=== PATIENT | female | born 1990 | race Caucasian/White ===

== ENCOUNTER 2021-09-06 19:35 | Emergency (ER) | payer BC, SELFPAY ==
[2021-09-06 19:46] VITALS: BP 115/84; PULSE 99; RESP 16; TEMP 36.2; O2SAT 99
--- NOTE | 2021-09-06 20:17 | ED.GENADULT ---
HPI - General Adult General Chief complaint: Neck Pain/Injury Stated complaint: neck pain Source: patient Mode of arrival: ambulatory Limitations: no limitations History of Present Illness HPI narrative: Patient is a 31-year-old female who presents to the [facility] via POV for evaluation of right sided neck pain that has been present for 1 week. Patient reports she woke up with neck pain. She believes she slept on her neck wrong. She reports her neck pain radiates to right shoulder and forehead. Initially, her pain started on the left although that pain resolved. She reports her pain is intermittent sharp and shooting. Current pain level is 7-8 out of 10. Ibuprofen and Tylenol provide short-term relief. Bending over increases pain. She is also requesting documentation for work absence. Related Data Home Medications Medication Instructions Recorded Confirmed albuterol 1 mcg INHALATION PRN PRN 09/06/21 09/06/21 levonorgestrel [Mirena] 1 insert INTRAUTERINE ONCE 09/06/21 09/06/21 Allergies Allergy/AdvReac Type Severity Reaction Status Date / Time morphine Allergy Blister Verified 09/06/21 19:50 PMFSH Comments I have reviewed and agree with the patient's past medical, surgical, social, and family hx as documented by the RN. There is no relevant family history pertinent to the presenting complaint. Exam Narrative: GENERAL: Well-appearing, well-nourished, and in no acute distress. HEAD: Normocephalic, atraumatic. NECK: Supple. No Lymphadenopathy or nuchal rigidity appreciated. CHEST: Bilateral lung guerrero are clear to auscultation. No respiratory distress. No evidence of cough or pleuritic cp upon examination. HEART: Regular rate and rhythm. No murmur, gallop, or rub heard. EXTREMITIES: Moderate pain elicited to right lateral neck with palpation. Moderate pain also elicited with right rotation and lateral flexion. No evidence of injury, decreased ROM, swelling, cyanosis, hematoma, laceration, abrasion, deformity, rash, or puncture. No evidence of dislocation, ligament laxity, effusion, or pain at rest. Pulses palpable at 2+, strength 5/5, and cap refill < 3 seconds in affected extremity. DTRs normal. Gait normal. SKIN: Warm, dry, no rash. NEURO: No focal deficits. Alert and oriented x3. Course Vital Signs Vital signs: Vital Signs Temperature 97.2 F L 10/09/21 19:46 Pulse Rate 99 09/06/21 19:46 Respiratory Rate 16 09/06/21 19:46 Blood Pressure 115/84 09/06/21 19:46 Pulse Oximetry 99 09/06/21 19:46 Temperature 97.2 F L 09/06/21 19:46 Pulse Rate 99 09/06/21 19:46 Respiratory Rate 16 09/06/21 19:46 Blood Pressure 115/84 09/06/21 19:46 Pulse Oximetry 99 09/06/21 19:46 Reviewed Medical Decision Making Differential Diagnosis Differential Diagnosis: Neck strain, cervical radiculopathy, whiplash spondylosis, Medical Records Medical records reviewed: Yes I reviewed the external patient's medical records. Vital Signs Vital Signs: Vital Signs Temperature 97.2 F L 09/06/21 19:46 Pulse Rate 99 09/06/21 19:46 Respiratory Rate 16 09/06/21 19:46 Blood Pressure 115/84 09/06/21 19:46 Pulse Oximetry 99 09/06/21 19:46 Temperature 97.2 F L 09/06/21 19:46 Pulse Rate 99 09/06/21 19:46 Respiratory Rate 16 09/06/21 19:46 Blood Pressure 115/84 09/06/21 19:46 Pulse Oximetry 99 09/06/21 19:46 Reviewed Critical Care Time Critical Care Time Critical Care Time: No Discharge Plan Discharge Clinical Impression: Strain of neck muscle Patient Disposition: Home, Self-Care Condition: Stable Instructions: Acute Neck Pain (ED) Additional Instructions: See discharge instructions for detailed information. Take all prescription medication only as prescribed. No yaah-[id number] anti-inflammatory such as Aleve, ibuprofen, Advil while taking prednisone. Tylenol for additional pain relief. Take only as directed per packaging label. Be sure
== END 2021-09-06 20:20 | disposition home or self-care (01) ==
PROVIDERS: Emergency Provider Nurse Practitioner Family
DX: S16.1XXA Strain of muscle, fascia and tendon at neck level, initial encounter (principal); X58.XXXA Exposure to other specified factors, initial encounter; J45.909 Unspecified asthma, uncomplicated
CPT/HCPCS: 99203; G0463

== ENCOUNTER 2022-03-25 07:34 | Emergency (ER) | payer SELFPAY ==
[2022-03-25] VITALS (9 sets, daily range): BP systolic 111–137; BP diastolic 85–86; PULSE 92–114; RESP 16–29; TEMP 36.8; O2SAT 94–100
--- NOTE | ~2022-03-25 | XR_ITS ---
XR chest 1V portable DATE: 03/25/2022 08:25 INDICATION: Cough, shortness of breath. Asthma. TECHNIQUE: Portable upright AP chest on 03/25/2022 at 0819 hours COMPARISON: None FINDINGS: Normal heart size. No hilar or mediastinal enlargement. No pulmonary infiltrate or consolid ation, pleural effusion or pulmonary vascular congestion or pneumothorax. Included skeletal structure s are unremarkable. There appear to be some surgical clips overlying the medial aspect of the right upper quadrant. IMPRESSION: No active cardiopulmonary disease Reviewed, dictated and finalized at location A.
--- NOTE | 2022-03-25 07:47 | ED.SOB ---
HPI - SOB/Dyspnea General Chief Complaint: Shortness of Breath/Dyspnea Stated Complaint: SOB Time Seen by Provider: 03/25/22 07:43 Source: patient Mode of arrival: ambulatory Limitations: no limitations History of Present Illness HPI Narrative: Patient is a 31-year-old female complaining of asthma attack started 2 weeks ago but worse today. Patient describes her asthma attack as shortness of breath accompanied by coughing, productive, clear yellowish sputum. Patient also complaining of nasal congestion for the past few days. Patient denies any chest pain, abdominal pain, diaphoresis, fever or chills. Related Data Home Medications Medication Instructions Recorded Confirmed albuterol 1 mcg INHALATION PRN PRN 09/06/21 09/06/21 levonorgestrel [Mirena] 1 insert INTRAUTERINE ONCE 09/06/21 09/06/21 Allergies Allergy/AdvReac Type Severity Reaction Status Date / Time morphine Allergy Blister Verified 09/06/21 19:50 Review of Systems Review of Systems: All systems reviewed & are unremarkable except as noted in HPI and below Constitutional: Constitutional: Denies body ache(s), Denies chills, Denies excessive sweating, Denies fatigue, Denies fever(s), Denies headache(s), Denies lethargy, Denies malaise, Denies weakness and Denies weight loss Eyes: Eyes: Denies blurry vision, Denies change in vision and Denies loss of vision ENT: Denies dizziness, Denies ear discharge, Denies headache(s), Denies lip swelling, Denies epistaxis, Denies neck pain, Denies throat swelling and Denies tongue swelling Cardiovascular: Cardiovascular: Denies chest pain, Denies chest pain at rest, Denies chest pain with activity, Denies diaphoresis, Denies rapid heart rate, Denies edema, Denies irregular heart rhythm, Denies lightheadedness and Denies palpitations Respiratory: Respiratory: Denies chest congestion and Denies hemoptysis Gastrointestinal: Gastrointestinal: Denies abdominal pain, Denies melena, Denies hematochezia, Denies diarrhea, Denies nausea, Denies vomiting and Denies hematemesis Musculoskeletal: Musculoskeletal: Denies abnormal gait, Denies deformity, Denies joint swelling, Denies limited range of motion, Denies neck pain and Denies numbness Neurologic: Denies Abnormal speech present, Denies abnormal gait, Denies confusion, Denies dizziness, Denies headache(s), Denies focal weakness, Denies loss of vision, Denies numbness, Denies Other visual disturbances, Denies Sensory deficit (Neuro) and Denies weakness Psychiatric: Psychiatric: Denies confusion, Denies depression, Denies auditory hallucinations, Denies homicidal ideation and Denies suicidal ideation Endocrine: Endocrine: Denies cold intolerance, Denies excessive sweating, Denies fatigue, Denies heat intolerance and Denies palpitations Hematologic/Lymphatic: Hematologic/Lymphatic: Denies easy bleeding and Denies easy bruising Allergic/Immunologic: Allergic/Immunologic: Denies lip swelling, Denies throat swelling and Denies tongue swelling PMFSH Comments Past medical history: Asthma Family history: Unknown Social history: Positive for smoker, occasional EtOH use, no drug use Exam Const: General: cooperative, comfortable, well developed, alert and awake; No confusion Orientation/consciousness: oriented to person, oriented to place, oriented to time, patient oriented x3 and No confusion Limitations: no limitations Other: Moderate distress HENMT: Head: normal to inspection, normocephalic and atraumatic Ears: hearing grossly normal bilaterally, TM normal on the right and TM normal on the left General nose exam: Normal external nose present, Normal nares present and No nasal discharge present Face and sinus: normal facial exam Mouth: Yes Normal oral and palatal mucosa present, Yes lip normal, Yes tongue normal and Yes oropharynx normal Throat: posterior oropharynx normal, tonsils normal and uvula midline Eyes: General: appearance normal, both eyes and all related structures Pupils: Eq
[2022-03-25] MEDS: ALBUTEROL SULFATE NEB 2.5 MG/3 ML INH 1.25 MG INHALATION (07:51)
[2022-03-25] MEDS: methylPREDNISolone SOD SUCC 125 MG VIAL IV PUSH (08:11)
--- NOTE | 2022-03-25 09:39 | ECG_ITS ---
Measurements Intervals [place] Rate: 98 P: 72 UT: 144 QRS: 62 QRSD: 90 T: 42 QT: 379 QTc: 485 Interpretive Statements SINUS RHYTHM POSSIBLE LEFT ATRIAL ENLARGEMENT [-0.1mV P WAVE IN V1/V2] NO PREVIOUS ECG AVAILABLE FOR COMPARISON Electronically Signed On 03-25-2022 13:49:05 CDT by Mally Schwartz M.D.
[2022-03-25] MEDS: ALBUTEROL SULFATE NEB 2.5 MG/0.5 ML INH INHALATION (09:49)
[2022-03-25] MEDS: IPRATROPIUM BR 0.02% INH SOLN 0.5 MG/2.5 ML VIAL INHALATION (09:49)
[2022-03-25 10:03] LABS: Basophils Absolute Auto 0.1 K/mm3 (0.0-0.1); Basophils Percent Auto 0.8 % (0.2-1.2); Eosinophils Absolute Auto 0.4 K/mm3 (0-0.3); Eosinophils Percent Auto 3.3 % (0-4.4); Hematocrit 45.8 % (37.0-47.0); Hemoglobin 14.8 g/dL (12.0-15.0); Immature Granulocyte Absolute 0.03 K/mm3 (0.00-0.031); Immature Granulocyte Percent A 0.3 % (0-0.5); Lymphocytes Absolute Auto 1.17 K/mm3 (0.9-3.2); Lymphocytes Percent Auto 9.9 % (18.3-44.2); Mean Corpuscular HGB Conc 32.3 g/dl (32-36); Mean Corpuscular Volume 92.9 fl (80-100); Mean Platelet Volume 9.1 fl (7.4-10.4); Monocytes Absolute Auto 0.3 K/mm3 (0.1-0.6); Monocytes Percent Auto 2.7 % (2.6-8.5); Neutrophils Absolute Auto 9.8 K/mm3 (1.3-6.7); Platelet Count Result 328 k/mm3 (150-375); Red Blood Count 4.93 M/mm3 (4.2-5.4); Red Cell Distribution Width 12.3 % (11.5-14.5); White Blood Count 11.8 K/mm3 (4.5-10.0)
[2022-03-25 10:18] LABS: Anion Gap 7 mmol/L (8-16); Blood Urea Nitrogen 17 mg/dL (7-17); Calcium 8.9 mg/dL (8.4-10.2); Carbon Dioxide 25 mmol/L (22-30); Chloride 107 mmol/L (98-107); Estimated CRCL calculation 94 ml/min; Estimated Glomerular Filt Rate > 60; Glucose 119 mg/dL (65-110); Potassium 3.8 mmol/L (3.4-5.0); Sodium 139 mmol/L (137-145)
[2022-03-25 10:30] LABS: NT Pro B Type Natriuretic Pept 26 pg/mL (5-100); Troponin I < 0.012 ng/mL (0.000-0.034)
== END 2022-03-25 11:12 | disposition home or self-care (01) ==
PROVIDERS: Emergency Provider Emergency Medicine
DX: J45.901 Unspecified asthma with (acute) exacerbation (principal)
CPT/HCPCS: 36415; 71045; 80048; 81025; 83880; 84484; 85025; 93005; 94640; 96374; 99284; J2930

== ENCOUNTER 2022-11-14 05:20 | Emergency (ER) | payer MEDICAID, SELFPAY ==
[2022-11-14 05:25] VITALS: BP 120/79; PULSE 91; RESP 18; TEMP 36.7; O2SAT 100
--- NOTE | 2022-11-14 07:49 | ED.GENADULT ---
HPI - General Adult General Chief complaint: Dental/Oral Stated complaint: facial swelling Time Seen by Provider: 11/14/22 07:14 History of Present Illness HPI narrative: 32-year-old female presents to our department with left-sided facial pain and dental caries. Patient states that she went to bed and felt a tooth ache and a left upper molar. She awoke at 4 AM and noticed that her face was quite swollen. She took ibuprofen and Tylenol at 11 PM she has a dental appointment scheduled this week. Related Data Home Medications Medication Instructions Recorded Confirmed albuterol 90 mcg/actuation aerosol 1 mcg inhalation PRN PRN Shortness 09/06/21 09/06/21 inhaler Of Breath levonorgestrel 20 mcg/24 hours (8 1 insert intrauterine ONCE 09/06/21 09/06/21 yrs) 52 mg intrauterine device (Mirena) Allergies Allergy/AdvReac Type Severity Reaction Status Date / Time morphine Allergy Blister Verified 11/14/22 08:05 Review of Systems Review of Systems: CONSTITUTIONAL: Denies fever, chills, or sweats. EYES: Denies visual changes, redness, or discharge. ENT: Denies rhinorrhea, congestion, sore throat, or otalgia. CARDIOVASCULAR: Denies chest pain, palpitations, or edema. RESPIRATORY: Denies cough or dyspnea. GASTROINTESTINAL: Denies abdominal pain, nausea, vomiting, or diarrhea. GENITOURINARY: Denies dysuria or hematuria. SKIN: Denies rash or itching. MUSCULOSKELETAL: Denies back pain, joint pain, or myalgia. NEUROLOGIC: Denies headache, numbness, or weakness. PSYCHIATRIC: Denies anxiety or depression. Exam Narrative: GENERAL: Well-appearing, well-nourished, and in no acute distress. HEAD: Normocephalic, atraumatic. Left-sided facial swelling EYES: PERRLA and EOMI. ENT: Nares clear, no rhinorrhea or epistaxis. Mucous membranes moist. Poor dentition with multiple dental caries. There is a cracked and decayed molar in the left upper jaw with no surrounding fluctuance or drainage. This is approximately tooth #14 but there are multiple prior extractions making numbering difficult. NECK: Supple. CHEST: Clear to auscultation. No respiratory distress. HEART: Regular rate and rhythm. No murmur heard. Normal peripheral pulses. ABDOMEN: Soft, nontender, nondistended, normal active bowel sounds. EXTREMITIES: Normal range of motion. No edema. SKIN: Warm, dry, no rash. NEURO: No focal deficits. Alert and oriented x3. PSYCH: Normal mood and affect. Course Vital Signs Vital signs: Vital Signs Temperature 98.1 F 11/14/22 05:25 Pulse Rate 91 11/14/22 05:25 Respiratory Rate 18 11/14/22 05:25 Blood Pressure 120/79 11/14/22 05:25 Pulse Oximetry 100 11/14/22 05:25 Oxygen Delivery Room Air 11/14/22 05:25 Temperature 98.1 F 11/14/22 05:25 Pulse Rate 67 11/14/22 07:57 Respiratory Rate 15 11/14/22 07:57 Blood Pressure 133/86 11/14/22 07:57 Pulse Oximetry 97 11/14/22 07:57 Oxygen Delivery Room Air 11/14/22 05:25 Medical Decision Making MDM Narrative Medical decision making narrative: Will give pain medication and antibiotic. Upon my initial interview patient is quite agitated and seems frustrated. I have attempted to reassure patient but I am unsure if she was receptive. Patient has received antibiotics and pain medication. I have explained importance of treatment and further steps to manage her condition. Family at bedside is very courteous and receptive but patient seems to be intentionally ignoring me when I talk to her. Vital Signs Vital Signs: Vital Signs Temperature 98.1 F 11/14/22 05:25 Pulse Rate 91 11/14/22 05:25 Respiratory Rate 18 11/14/22 05:25 Blood Pressure 120/79 11/14/22 05:25 Pulse Oximetry 100 11/14/22 05:25 Oxygen Delivery Room Air 11/14/22 05:25 Temperature 98.1 F 11/14/22 05:25 Pulse Rate 67 11/14/22 07:57 Respiratory Rate 15 11/14/22 07:57 Blood Pressure 133/86 11/14/22 07:57 Pulse Oximetry 97 11/14/22 07:57 Oxygen
[2022-11-14 07:57] VITALS: BP 133/86; PULSE 67; RESP 15; O2SAT 97
[2022-11-14] MEDS: HYDROcodone/acetaminophen (*CRX) 5-325 MG TABLET 1 TAB PO (08:05)
[2022-11-14] MEDS: AMOXICILLIN/CLAVULANATE K 875-125 MG TAB 1 TABLET PO (08:05)
[2022-11-14] MEDS: KETOROLAC 15 MG/ML VIAL (*BKC) IM (08:06)
== END 2022-11-14 08:38 | disposition home or self-care (01) ==
PROVIDERS: Emergency Provider Emergency Medicine
DX: K02.9 Dental caries, unspecified (principal); K03.81 Cracked tooth
CPT/HCPCS: 96372; 99283; A9270; J1885

== ENCOUNTER 2022-11-14 16:32 | Inpatient (IN) | payer MEDICAID, SELFPAY ==
--- NOTE | ~2022-11-14 | CT_ITS ---
EXAMINATION: CT facial bones w con DATE: 11/17/2022 14:25 INDICATION: Increased swelling TECHNIQUE: Computed tomography (CT) of the facial bones and maxillofacial region was performed with 7 5 mL Omnipaque-350 intravenous contrast. Coronal reconstructions were obtained. Automated exposure co ntrol and iterative reconstruction technique were employed. The dose-length product was 514.11 mGy-cm . COMPARISON: CT dated 11/14/2022 FINDINGS: There is a new subperiosteal abscess just to left of midline along the anterior left maxilla which me asures 1.6 cm medial collateral, 1.3 cm craniocaudally and 4 mm maximal thickness. Persistent overlyi ng phlegmonous change underlying the left nasal labial fold. Extensive dental disease with multiple d ental caries of varying severity, many of the premolars and molars with erosion of the entire or near ly the entire crowns of the teeth. There are multiple periapical erosions most prominent surrounding the roots of the left and right mandibular molars. Moderate to severe mucosal thickening the left max illary sinus with occlusion of the left frontoethmoidal recess. Bilateral orbits are normal. Mastoid air cells and middle ear cavities are clear. Multiple mildly enlarged likely reactive lymph nodes sara ng the mandible and at the bilateral proximal jugular chains. IMPRESSION: 1. Persistent cellulitis and phlegmonous change in the subcutaneous tissues to . Nasolabial fold with interval development of an underlying 1.6 x 1.3 x 0.4 cm the subperiosteal abscess along the left pa ramedian anterior maxilla likely related to extensive severe dental disease. . 2. Persistent moderate to severe mucosal thickening left maxillary sinus. Reviewed, dictated and finalized at location L. [employer] IMPRESSION: 1. Persistent cellulitis and phlegmonous change in the subcutaneous tissues to . Nasolabial fold with interval development of an underlying 1.6 x 1.3 x 0.4 cm the subperiosteal abscess along the left paramedian anterior maxilla likely re lated to extensive severe dental disease. . 2. Persistent moderate to severe mucosal thickening left maxillary sinus.
--- NOTE | ~2022-11-14 | CT_ITS ---
EXAMINATION: CT soft tissue neck w con DATE: 11/14/2022 20:18 INDICATION: Infection with swelling to left cheek and eye TECHNIQUE: Computed tomography (CT) of the neck was performed with 75 mL Omnipaque-350 intravenous co ntrast. Automated exposure control and iterative reconstruction technique were employed. The dose-day gth product was 501.99 mGy-cm. COMPARISON: None FINDINGS: Extensive dental disease with multiple dental caries of varying severity, many of the premolars and m olars with erosion of the entire or nearly the entire crowns of the teeth. There are multiple periapi sriram erosions most prominent surrounding the roots of the left and right mandibular molars. There is s uggestion of erosion into the floor of the left maxillary sinus with moderate to severe mucosal thick ening in the left maxillary sinus. There is prominent subcutaneous edema and hyperemia with tiny enha ncing vessels likely related to cellulitis centered at the left side of the philtrum. No abscess. Les s severe cellulitis extends laterally into the left cheek and the inferior preseptal soft tissues at the left orbit. Orbits are otherwise normal with no post septal stranding. Additional minimal mucosal thickening the right maxillary and bilateral ethmoid sinuses. Bilateral mastoid air cells and middle ear cavities are clear. Bilateral parotid and submandibular gl ands are normal and symmetric. Thyroid gland is normal. Mildly prominent but still normal-sized likel y reactive left submandibular and bilateral high jugular chain lymph nodes. There is also likely reac tive lymphadenopathy at the bilateral posterior cervical triangles with multiple small lymph nodes mo re notable for number than size. Airway is clear with normal epiglottis. Visualized superior mediasti num and apices of lungs are unremarkable. Mild cervical spondylosis. IMPRESSION: 1. Facial cellulitis without evident abscess centered anterior along the left side of the philtrum wh ich may be related to extensive severe dental disease with multiple dental caries and periapical eros ions. 2. Sinus disease most prominent in the left maxillary sinus where there is suggestion of erosion into the sinus of one of the periapical erosions. 3. Likely reactive cervical lymphadenopathy. Reviewed, dictated and finalized at location [facility] [employer] IMPRESSION: 1. Facial cellulitis without evident abscess centered anterior along the left s palmira of the philtrum which may be related to extensive severe dental disease wit h multiple dental caries and periapical erosions. 2. Sinus disease most prominent in the left maxillary sinus where there is sugg estion of erosion into the sinus of one of the periapical erosions. 3. Likely reactive cervical lymphadenopathy.
[2022-11-14 16:40] VITALS: BP 123/84; PULSE 88; RESP 17; TEMP 37.4; O2SAT 100
--- NOTE | 2022-11-14 18:44 | ED.GENADULT ---
HPI - General Adult General Chief complaint: Dental/Oral <BENJAMÍN Pittman Last Filed: 11/15/22 00:05> Stated complaint: facial swelling, can't see out of eye <BENJAMÍN Pittman Last Filed: 11/15/22 00:05> Time Seen by Provider: 11/14/22 18:08 <BENJAMÍN iPttman Last Filed: 11/15/22 00:05> Source: patient and old records reviewed <BENJAMNÍ Pittman Last Filed: 11/15/22 00:05> Mode of arrival: ambulatory <BENJAMÍN Pittman Filed: 11/15/22 00:05> Limitations: no limitations <BENJAMÍN Pittman Last Filed: 11/15/22 00:05> History of Present Illness HPI narrative: Patient is a 32 y/o female who presents to the ED with c/o facial swelling. Patient reports she developed a tooth ache in her left upper front tooth and upper posterior molar last night. She woke up this morning with swelling in her left facial cheek, extending up towards her left eye. Patient was seen in the ED earlier today and prescribed Augmentin and ibuprofen. Patient has taken 1 dose of Augmentin today and took ibuprofen just prior to arrival. She states the swelling has gotten significantly worse over the last 4 hours, which prompted her return. Denies any fevers at home. Denies difficulty breathing, difficulty swallowing, drooling, blurry vision, nausea, vomiting. Per ED triage nurse, patient went outside to smoke several times while waiting in the waiting room. She was also seen eating chicken nuggets. <BENJAMÍN Pittman Last Filed: 11/15/22 00:05> Related Data Home medications: Home Medications Medication Instructions Recorded Confirmed albuterol 90 mcg/actuation aerosol 1 mcg inhalation PRN PRN Shortness 09/06/21 11/14/22 inhaler Of Breath levonorgestrel 20 mcg/24 hours (8 1 insert intrauterine ONCE 09/06/21 11/14/22 yrs) 52 mg intrauterine device (Mirena) <Adelia Taylor PA-C - Last Filed: 11/15/22 00:05> Allergies/adverse reactions: Allergies Allergy/AdvReac Type Severity Reaction Status Date / Time morphine Allergy Blister Verified 11/14/22 16:33 <Adelia Taylor PA-C - Last Filed: 11/15/22 00:05> Review of Systems Review of Systems: CONSTITUTIONAL: Denies fever, chills, or sweats. EYES: Denies visual changes, redness, or discharge. ENT: Reports left-sided upper dental pain. Reports left-sided facial swelling into left eye. Denies dysphagia, rhinorrhea, congestion, sore throat, or otalgia. CARDIOVASCULAR: Denies chest pain palpitations, or edema. RESPIRATORY: Denies dyspnea. GASTROINTESTINAL: Denies abdominal pain, nausea, vomiting. SKIN: Denies rash or itching. <Adelia Taylor PA-C - Last Filed: 11/15/22 00:05> All systems reviewed & are unremarkable except as noted in HPI and below <Adelia Taylor PA-C - Last Filed: 11/15/22 00:05> [facility] Past Medical History Medical History: Medical History (Updated 11/15/22 @ 02:27 by Donovan Arroyo MD) No pertinent past medical history <Adelia Taylor PA-C - Last Filed: 11/15/22 00:05> Surgical History Surgical History: Surgical History (Updated 11/14/22 @ 19:00 by Adelia Taylor PA-C) No pertinent past surgical history <Adelia Taylor PA-C - Last Filed: 11/15/22 00:05> Family History Family History: Family History (Updated 11/14/22 @ 22:29 by Temi Wheeler RN) Other Unknown family medical history <Adelia Taylor PA-C - Last Filed: 11/15/22 00:05> Social History Social History: Social History (Updated 11/14/22 @ 19:01 by Adelia Taylor PA-C) Smoking status: Current every day smoker Alcohol intake: current Drinks per week: 2 Substance use: never Lack of Transportation: No Lack of Food: Never True Current Housing: I Have Housing Concerned About Future Housing: No Difficulty Paying Gas/Electric Bills: No Difficulty Paying for
[2022-11-14 18:45] LABS: Basophils Absolute Auto 0.1 K/mm3 (0.0-0.1); Basophils Percent Auto 0.4 % (0.2-1.2); Eosinophils Absolute Auto 0.5 K/mm3 (0-0.3); Eosinophils Percent Auto 3.1 % (0-4.4); Hematocrit 40.3 % (37.0-47.0); Hemoglobin 13.6 g/dL (12.0-15.0); Immature Granulocyte Absolute 0.07 K/mm3 (0.00-0.031); Immature Granulocyte Percent A 0.5 % (0-0.5); Lymphocytes Absolute Auto 2.45 K/mm3 (0.9-3.2); Lymphocytes Percent Auto 16.4 % (18.3-44.2); Mean Corpuscular HGB Conc 33.7 g/dl (32-36); Mean Corpuscular Hemoglobin 31.3 pg (26-34); Mean Corpuscular Volume 92.6 fl (80-100); Mean Platelet Volume 9.6 fl (7.4-10.4); Monocytes Absolute Auto 0.9 K/mm3 (0.1-0.6); Monocytes Percent Auto 6.1 % (2.6-8.5); Neutrophils Percent Auto 73.5 % (45.5-73.1); Platelet Count Result 298 k/mm3 (150-375); Red Blood Count 4.35 M/mm3 (4.2-5.4); Red Cell Distribution Width 12.4 % (11.5-14.5)
[2022-11-14 18:54] LABS: Alanine Aminotransferase 23 U/L (6-35); Albumin Level 4.2 g/dL (3.5-5.1); Alkaline Phosphatase 95 U/L (38-126); Anion Gap 6 mmol/L (8-16); Aspartate Amino Transferase 21 U/L (14-36); Bilirubin,Total 0.6 mg/dL (0.2-1.3); Blood Urea Nitrogen 10 mg/dL (7-17); Calcium 8.7 mg/dL (8.4-10.2); Carbon Dioxide 24 mmol/L (22-30); Chloride 103 mmol/L (98-107); Estimated CRCL calculation 108 ml/min; Estimated Glomerular Filt Rate > 60; Glucose 103 mg/dL (65-110); Potassium 3.6 mmol/L (3.4-5.0); Sodium 133 mmol/L (137-145)
[2022-11-14 20:53] VITALS: BP 135/77; PULSE 84; RESP 18; TEMP 36.8; O2SAT 99
[2022-11-14] MEDS: CLINDAMYCIN 900 MG/D5W 50 ML 900 MG/50 ML PIGGYBACK 50 MG IVPB (21:35)
[2022-11-14 21:54] VITALS: BP 115/74; PULSE 100; RESP 18; TEMP 37.2; O2SAT 100
[2022-11-14 22:05] VITALS: BP 122/79; PULSE 80; RESP 18; TEMP 37.2; O2SAT 97
[2022-11-14 22:05] LABS: Influenza A QL RT-PCR Negative (Negative); Influenza B QL RT-PCR Negative (Negative); SARS-CoV-2 RNA PCR Negative
--- NOTE | 2022-11-14 22:13 | PM.IMHP ---
H&P: HPI History of Present Illness Date/Time: 11/14/22 22:13 Chief Complaint: Face swelling Narrative: This is a 32-year-old female with past medical history significant for tobacco dependence, current everyday smoker, presents to the emergency room due to left-sided toothache was discharged home on a course of amoxicillin however this progressed to facial swelling of the left side in a matter of hours with pain and tenderness and redness patient denies any fevers, rigors or chills decided to come a 2nd time to the emergency room this time patient has been admitted. A CT of the face: IMPRESSION: 1. Facial cellulitis without evident abscess centered anterior along the left side of the philtrum which may be related to extensive severe dental disease with multiple dental caries and periapical erosions. 2. Sinus disease most prominent in the left maxillary sinus where there is suggestion of erosion into the sinus of one of the periapical erosions. 3. Likely reactive cervical lymphadenopathy. Review of Systems Review of Systems: Left face swelling, tenderness, redness Constitutional: Constitutional: Denies chills, Denies fever(s), Denies malaise and Denies night sweats Eyes: Eyes: Denies change in vision ENT: Denies dysphagia, Denies vertigo, Denies dizziness and Denies odynophagia Cardiovascular: Cardiovascular: Denies chest pain and Denies radiating jaw, neck or arm pain Respiratory: Respiratory: Denies change in phlegm color, Denies chest congestion, Denies cough, Denies excessive phlegm production, Denies pain on inspiration and Denies wheezing Gastrointestinal: Gastrointestinal: Denies abdominal pain, Denies dyspepsia, Denies heartburn, Denies diarrhea, Denies nausea and Denies vomiting Genitourinary: Genitourinary: Denies dysuria Musculoskeletal: Musculoskeletal: Denies myalgias Integumentary/Breasts: Skin/Breast: Reports swelling (Left face) and Reports change in pigmentation (Left face) Neurologic: Denies vertigo, Denies dizziness, Denies focal weakness and Denies Sensory deficit (Neuro) Psychiatric: Psychiatric: Reports no additional psychiatric complaints and Reports as per HPI Endocrine: Endocrine: Denies cold intolerance, Denies flushing, Denies heat intolerance, Denies polyphagia, Denies polydipsia and Denies palpitations Hematologic/Lymphatic: Hematologic/Lymphatic: Reports no additional hematologic/lymphatic complaints and Reports as per HPI Allergic/Immunologic: Allergic/Immunologic: Reports no additional allergic/immunologic complaints and Reports as per HPI [facility] Past Medical History Medical History (Updated 11/15/22 @ 02:27 by Donovan Arroyo MD) No pertinent past medical history Surgical History Surgical History (Updated 11/14/22 @ 19:00 by Adelia Taylor PA-C) No pertinent past surgical history Family History Family History (Updated 11/14/22 @ 22:29 by Temi Wheeler RN) Other Unknown family medical history Social History Social History (Updated 11/14/22 @ 19:01 by Adelia Taylor PA-C) Smoking status: Current every day smoker Alcohol intake: current Drinks per week: 2 Substance use: never Lack of Transportation: No Lack of Food: Never True Current Housing: I Have Housing Concerned About Future Housing: No Difficulty Paying Gas/Electric Bills: No Difficulty Paying for Meds: No Currently Unemployed: YES Education: Grade School Difficulty w/ Childcare or Family Care: No Spiritual care concerns: No Meds Home Medications and Allergies Home Medications Medication Instructions Recorded Confirmed Type albuterol 90 mcg/actuation aerosol 1 mcg inhalation PRN PRN Shortness 09/06/21 11/14/22 History inhaler Of Breath levonorgestrel 20 mcg/24 hours (8 1 insert intrauterine ONCE 09/06/21 11/14/22 History yrs) 52 mg intrauterine device (Mirena) amoxicillin 875 mg-potassium 1 tablet PO Q12H 7 days #14 tabs 11/14/2211/14
--- NOTE | 2022-11-14 22:29 | ADMGEN ---
This patient, Cadence Rueda, was admitted to 2 Medical Room 259-. Patient/family oriented to hospital policies and general routines including ID bracelet, bed and alarms, visiting hours, pain management, procedures, bathroom and other care routines, personal items, smoking policy, room service/diet, and visiting hours. Information on how to activate the Rapid Response Team has been discussed. Patient/Family are encouraged to report perceived risks to care and to ask questions if they do not understand what they are told or what they should do.
[2022-11-14 22:44] VITALS: BP 113/70; PULSE 82; RESP 16; TEMP 36.4; O2SAT 98; BMI 34.7
[2022-11-15] MEDS: NICOTINE (*PBKC) 21 MG PATCH 1 PATCH TRANSDERM ×2 (01:28→08:32)
[2022-11-15] MEDS: HYDROmorphone HCL INJ (*CRX) 1 MG/ML SYR IV PUSH (02:09)
[2022-11-15] MEDS: CLINDAMYCIN 900 MG/D5W 50 ML 900 MG/50 ML PIGGYBACK 50 MG IVPB ×3 (05:08→20:03)
[2022-11-15] MEDS: traMADol HCL (*CRX) 50 MG TABLET PO (05:11)
[2022-11-15 06:00] VITALS: BP 109/60; PULSE 90; RESP 20; TEMP 36.7; O2SAT 95
[2022-11-15] MEDS: IBUPROFEN 200 MG TABLET 600 MG PO ×2 (08:32→12:59)
[2022-11-15] MEDS: ENOXAPARIN 40 MG/0.4 ML SYRINGE SUB-Q (08:32)
[2022-11-15 08:51] VITALS: BP 111/73; PULSE 78; RESP 17; O2SAT 98
[2022-11-15] MEDS: oxyCODONE HCL (*CRX) 5 MG TAB IR PO ×3 (08:54→23:00)
[2022-11-15 10:00] LABS: Basophils Absolute Auto 0.1 K/mm3 (0.0-0.1); Basophils Percent Auto 0.4 % (0.2-1.2); Eosinophils Absolute Auto 0.2 K/mm3 (0-0.3); Eosinophils Percent Auto 1.6 % (0-4.4); Hematocrit 37.7 % (37.0-47.0); Hemoglobin 12.4 g/dL (12.0-15.0); Immature Granulocyte Absolute 0.06 K/mm3 (0.00-0.031); Immature Granulocyte Percent A 0.4 % (0-0.5); Lymphocytes Percent Auto 14.9 % (18.3-44.2); Mean Corpuscular HGB Conc 32.9 g/dl (32-36); Mean Corpuscular Hemoglobin 30.4 pg (26-34); Mean Corpuscular Volume 92.4 fl (80-100); Mean Platelet Volume 9.4 fl (7.4-10.4); Monocytes Absolute Auto 0.8 K/mm3 (0.1-0.6); Monocytes Percent Auto 5.8 % (2.6-8.5); Neutrophils Absolute Auto 10.9 K/mm3 (1.3-6.7); Neutrophils Percent Auto 76.9 % (45.5-73.1); Platelet Count Result 270 k/mm3 (150-375); Red Blood Count 4.08 M/mm3 (4.2-5.4); Red Cell Distribution Width 12.5 % (11.5-14.5); White Blood Count 14.1 K/mm3 (4.5-10.0)
[2022-11-15 10:12] LABS: Alanine Aminotransferase 29 U/L (6-35); Alkaline Phosphatase 87 U/L (38-126); Anion Gap 5 mmol/L (8-16); Aspartate Amino Transferase 27 U/L (14-36); Blood Urea Nitrogen 8 mg/dL (7-17); Calcium 8.2 mg/dL (8.4-10.2); Carbon Dioxide 23 mmol/L (22-30); Chloride 102 mmol/L (98-107); Estimated CRCL calculation 108 ml/min; Estimated Glomerular Filt Rate > 60; Glucose 142 mg/dL (65-110); Potassium 3.5 mmol/L (3.4-5.0); Sodium 130 mmol/L (137-145)
--- NOTE | 2022-11-15 12:30 | PM.IMPN ---
Progress Note: A&P Assessment and Plan (1) Facial cellulitis: Code(s): L03.211 - Cellulitis of face Status: Acute Assessment and Plan: CT of the face cellulitis without abscess with several cavities and sinus erosions Continue clindamycin Blood cultures pending Pain medications ordered, adjust as indicated to norco and oxycodone WBC elevated at 15.0 Trend labs and symptoms (2) Tobacco dependence: Code(s): F17.200 - Nicotine dependence, unspecified, uncomplicated Status: Acute Assessment and Plan: Nicotine patch as needed Cessation education provided (3) Hyponatremia: Code(s): E87.1 - Hypo-osmolality and hyponatremia Status: Acute Assessment and Plan: sodium was noted to be 130 continue to trend consider IV fluids if trending down stable at this time Time Spent With Patient Time with patient: Greater than 35 minutes Subjective Date/time seen: 11/15/22 1230 Interval history: 11/15/22 1230 patient seems to be a little has stressed out. She did state that she feels like her infection has went further and to her and upper face. She also stated that she cannot breathe out of the 1 nostril. She denies any chest pain, shortness a breath, nausea, vomiting, diarrhea, constipation, weakness fatigue. She is concerned that the redness is getting worse and that her face is really hard. However she also stated that she feels like the swelling in her eye has gone down a little bit as well. 11/14/22? 22:13 This is a 32-year-old female with past medical history significant for tobacco dependence, current everyday smoker, presents to the emergency room due to left-sided toothache was discharged home on a course of amoxicillin however this progressed to facial swelling of the left side in a matter of hours with pain and tenderness and redness patient denies any fevers, rigors or chills decided to come a 2nd time to the emergency room this time patient has been admitted. Review of Systems Review of Systems: All systems reviewed & are unremarkable except as noted in HPI and below Exam Narrative: General: well-nourished, well-appearing 32-year-old female, sitting up in bed, comfortable, NARD Neuro: awake, alert and oriented x4, speech clear, no focal neuro deficits noted HEENMT: normocephalic, atraumatic, EOMI, mild redness with swelling to the left face up around eye, with clear drainage from the EYE, several black and decayed teeth bilterally Respiratory: Clear to auscultation bilaterally without crackles, rhonchi or wheezes, nonlabored breathing Cardio: regular rate, regular rhythm with S1-S2 Abdomen: nondistended, normoactive bowel sounds, soft, nontender to palpation Extremities: no edema, erythema, or tenderness to palpation, DP pulses 2+ bilaterally Skin: no rashes or lesions, warm and dry Psych: appropriate mood and affect, judgment and insight intact Objective Data Vital Signs Vital Signs: Vital Signs - 24 hr 11/14/22 16:40 11/14/22 20:53 11/14/22 21:54 Temperature 99.4 F 98.2 F 99 F Pulse Rate 88 84 100 Respiratory Rate 17 18 18 Blood Pressure 123/84 135/77 115/74 Pulse Oximetry 100 99 100 Oxygen Delivery Room Air 11/14/22 22:05 11/14/22 22:44 11/15/22 06:00 Temperature 99 F 97.6 F 98.1 F Pulse Rate 80 82 90 Respiratory Rate 18 16 20 Blood Pressure 122/79 113/70 109/60 Pulse Oximetry 97 98 95 Oxygen Delivery 11/15/22 08:51 Temperature Pulse Rate 78 Respiratory Rate 17 Blood Pressure 111/73 Pulse Oximetry 98 Oxygen Delivery Intake/Output Intake/Output: Intake & Output 11/12/22 11/13/22 11/14/22 11/15/22 23:59 23:59 23:59 23:59 Intake Total 150 850 Output Total 200 300 Balance -50 550 Meds/Results Medications: Active Medications Generic Name Dose Route Start Last Admin Trade Name Freq PRN Reason Stop Dose Admin Albuter
[2022-11-15 14:00] VITALS: BP 112/69; PULSE 73; RESP 18; TEMP 36.9; O2SAT 96
[2022-11-15] MEDS: HYDROcodone/acetaminophen (*CRX) 5-325 MG TABLET 1 TAB PO (20:02)
[2022-11-15 21:45] VITALS: BP 100/50; PULSE 89; RESP 17; TEMP 37.2; O2SAT 97
[2022-11-16] MEDS: HYDROcodone/acetaminophen (*CRX) 5-325 MG TABLET 1 TAB PO ×5 (01:10→22:56)
[2022-11-16] MEDS: oxyCODONE HCL (*CRX) 5 MG TAB IR PO ×4 (04:52→20:04)
[2022-11-16] MEDS: CLINDAMYCIN 900 MG/D5W 50 ML 900 MG/50 ML PIGGYBACK 50 MG IVPB ×2 (04:53→12:41)
[2022-11-16 05:37] VITALS: BP 111/58; PULSE 88; RESP 18; TEMP 36.9; O2SAT 95
[2022-11-16 07:09] LABS: Basophils Absolute Auto 0.1 K/mm3 (0.0-0.1); Basophils Percent Auto 0.5 % (0.2-1.2); Eosinophils Absolute Auto 0.3 K/mm3 (0-0.3); Eosinophils Percent Auto 2.3 % (0-4.4); Hematocrit 37.2 % (37.0-47.0); Hemoglobin 12.2 g/dL (12.0-15.0); Immature Granulocyte Absolute 0.04 K/mm3 (0.00-0.031); Immature Granulocyte Percent A 0.3 % (0-0.5); Lymphocytes Absolute Auto 2.05 K/mm3 (0.9-3.2); Mean Corpuscular HGB Conc 32.8 g/dl (32-36); Mean Corpuscular Volume 91.6 fl (80-100); Mean Platelet Volume 9.4 fl (7.4-10.4); Monocytes Percent Auto 7.7 % (2.6-8.5); Neutrophils Absolute Auto 9.4 K/mm3 (1.3-6.7); Neutrophils Percent Auto 73.2 % (45.5-73.1); Platelet Count Result 299 k/mm3 (150-375); Red Blood Count 4.06 M/mm3 (4.2-5.4); Red Cell Distribution Width 12.5 % (11.5-14.5); White Blood Count 12.9 K/mm3 (4.5-10.0)
[2022-11-16 07:16] LABS: Alanine Aminotransferase 29 U/L (6-35); Albumin Level 3.9 g/dL (3.5-5.1); Alkaline Phosphatase 83 U/L (38-126); Anion Gap 6 mmol/L (8-16); Aspartate Amino Transferase 27 U/L (14-36); Bilirubin,Total 0.5 mg/dL (0.2-1.3); Blood Urea Nitrogen 8 mg/dL (7-17); Calcium 8.2 mg/dL (8.4-10.2); Carbon Dioxide 24 mmol/L (22-30); Chloride 102 mmol/L (98-107); Estimated CRCL calculation 127 ml/min; Estimated Glomerular Filt Rate > 60; Glucose 105 mg/dL (65-110); Magnesium 1.7 mg/dL (1.6-2.3); Potassium 3.7 mmol/L (3.4-5.0); Sodium 132 mmol/L (137-145)
[2022-11-16 08:29] VITALS: BP 115/80; PULSE 88; RESP 22; O2SAT 98
[2022-11-16] MEDS: IBUPROFEN 200 MG TABLET 600 MG PO ×3 (08:30→16:14)
[2022-11-16] MEDS: ENOXAPARIN 40 MG/0.4 ML SYRINGE SUB-Q (08:30)
[2022-11-16] MEDS: HYDROmorphone HCL INJ (*CRX) 1 MG/ML SYR 0.5 MG IV PUSH (08:31)
--- NOTE | 2022-11-16 08:38 | PC.NURSE ---
called pharmacy and left message for missing nicotine patch, will give when received
--- NOTE | 2022-11-16 11:50 | PC.NURSE ---
left message with pharmacy for missing nicotine patch, will give when received
--- NOTE | 2022-11-16 12:00 | PM.IMPN ---
Progress Note: A&P Assessment and Plan (1) Facial cellulitis: Code(s): L03.211 - Cellulitis of face Status: Acute Assessment and Plan: CT of the face cellulitis without abscess with several cavities and sinus erosions Continue clindamycin, consider vanco and ceftriaxone Blood cultures NGTD Pain medications ordered, adjust as indicated to norco and oxycodone , add Dilaudid for break through pain WBC elevated at trending down currently 12.9 Trend labs and symptoms (2) Tobacco dependence: Code(s): F17.200 - Nicotine dependence, unspecified, uncomplicated Status: Acute Assessment and Plan: Nicotine patch as needed Cessation education provided (3) Hyponatremia: Code(s): E87.1 - Hypo-osmolality and hyponatremia Status: Acute Assessment and Plan: sodium was noted to be 130 upon admission, currently 132 continue to trend consider IV fluids if trending down stable at this time Time Spent With Patient Time with patient: Greater than 35 minutes Subjective Date/time seen: 11/16/22 1200 Interval history: 11/16/22 1200 patient stated that she does not feel like getting any better. Patient also stated that the pain is much worse and currently rates an 8/10. She denies any chest pain, shortness a breath, nausea, vomiting, diarrhea, constipation, weakness or fatigue. She did also state that it is very hard and that she is having hard time breathing out of her left nostril. Currently the redness seems to be stable will check with ID pharm about possibly change her antibiotics. 11/15/22 1230 patient seems to be a little has stressed out. She did state that she feels like her infection has went further and to her and upper face. She also stated that she cannot breathe out of the 1 nostril. She denies any chest pain, shortness a breath, nausea, vomiting, diarrhea, constipation, weakness fatigue. She is concerned that the redness is getting worse and that her face is really hard. However she also stated that she feels like the swelling in her eye has gone down a little bit as well. 11/14/22? 22:13 This is a 32-year-old female with past medical history significant for tobacco dependence, current everyday smoker, presents to the emergency room due to left-sided toothache was discharged home on a course of amoxicillin however this progressed to facial swelling of the left side in a matter of hours with pain and tenderness and redness patient denies any fevers, rigors or chills decided to come a 2nd time to the emergency room this time patient has been admitted. Review of Systems Review of Systems: All systems reviewed & are unremarkable except as noted in HPI and below Exam Narrative: General: well-nourished, well-appearing 32-year-old female, sitting up in bed, comfortable, NARD Neuro: awake, alert and oriented x4, speech clear, no focal neuro deficits noted HEENMT: normocephalic, atraumatic, EOMI, mild redness with swelling to the left face up around eye, with clear drainage from the EYE, several black and decayed teeth bilterally Respiratory: Clear to auscultation bilaterally without crackles, rhonchi or wheezes, nonlabored breathing Cardio: regular rate, regular rhythm with S1-S2 Abdomen: nondistended, normoactive bowel sounds, soft, nontender to palpation Extremities: no edema, erythema, or tenderness to palpation, DP pulses 2+ bilaterally Skin: no rashes or lesions, warm and dry Psych: appropriate mood and affect, judgment and insight intact Objective Data Vital Signs Vital Signs: Vital Signs - 24 hr 11/15/22 08:51 11/15/22 08:35 11/15/22 14:00 Temperature 98.5 F Pulse Rate 78 73 Respiratory Rate 17 18 Blood Pressure 111/73 112/69 Pulse Oximetry 98 96 Oxygen Delivery Room Air 11/15/22 21:45 11/15/22 20:00 11/16/22 05:37 Temperature 98.9 F 98.4 F Pulse Rate 89 8
[2022-11-16] MEDS: NICOTINE (*PBKC) 21 MG PATCH 1 PATCH TRANSDERM (12:42)
[2022-11-16] MEDS: cefTRIAXone 2 GM in SODIUM CHLORIDE 0.9% IV 100 ML 200 ML IVPB (14:24)
[2022-11-16] MEDS: metroNIDAZOLE 500 MG/ISO 100ML 500 MG/100 ML BAG 100 MG IVPB ×2 (14:30→21:08)
[2022-11-16 15:33] VITALS: BP 118/74; PULSE 69; RESP 18; O2SAT 100
[2022-11-16 21:32] VITALS: BP 124/80; PULSE 76; RESP 20; TEMP 37; O2SAT 100
--- NOTE | 2022-11-16 21:42 | PC.NURSE ---
PT AGITATION HAS INCREASED. SHE IS ANXIOUS AND UPSET ABOUT HER PAIN MEDICATION. PT STARTS CRYING ANYTIME I ENTER THE ROOM STATING SHE IS IN PAIN. PT STATED THAT NOTHING IS WORKING AND NO DOCTOR HAS BEEN IN TO HELP HER. PT STATED SHE ATE [employer] ICE CREAM AT DINNER AND THAT MADE HER GUMS SENSITIVE. ALSO THAT SHE BENT OVER IN THE SHOWER AND THE BLOOD RUSHING TO HER HEAD CAUSED MORE PAIN. SHE REQUESTED A HEATING PAD OR ICE PACK. SPOKE WITH JIMENEZ AND SHE STATED PT COULD USE WARM COMPRESS OR ICE PACK AND LOOK OVER HER CHART TO POSSIBLY CHANGE PAIN MEDICATIONS. PROVIDED PT WITH ICE PACK AND WARM WASH CLOTHS. PT STATES SHE DOES NOT TAKE ANY ANXIETY MEDICATION AT HOME BUT IS REQUESTING SOMETHING TO RELAX OR GO TO SLEEP. PT HAS SLEPT COMFORTABLY THE PAST 2 NIGHTS I HAVE HAD HER A PATIENT. WHEN I ENTER THE ROOM TO ASSESS HER PAIN SHE IS LYING COMFORTABLY BUT SAYS SHE HAS NO RELIEF AFTER RECEIVING MEDICATION.
[2022-11-17] MEDS: oxyCODONE HCL (*CRX) 5 MG TAB IR PO ×2 (01:16→05:32)
[2022-11-17] MEDS: HYDROcodone/acetaminophen (*CRX) 5-325 MG TABLET 1 TAB PO ×2 (03:49→08:00)
[2022-11-17 05:15] VITALS: BP 124/68; PULSE 85; RESP 20; TEMP 37.2; O2SAT 96
[2022-11-17 05:40] LABS: Basophils Absolute Auto 0.1 K/mm3 (0.0-0.1); Basophils Percent Auto 0.4 % (0.2-1.2); Eosinophils Absolute Auto 0.3 K/mm3 (0-0.3); Eosinophils Percent Auto 1.8 % (0-4.4); Hematocrit 39.8 % (37.0-47.0); Hemoglobin 12.9 g/dL (12.0-15.0); Immature Granulocyte Absolute 0.08 K/mm3 (0.00-0.031); Immature Granulocyte Percent A 0.6 % (0-0.5); Immature Platelet Fraction Pct 4.2 % (0.9-11.2); Lymphocytes Absolute Auto 1.35 K/mm3 (0.9-3.2); Lymphocytes Percent Auto 9.8 % (18.3-44.2); Mean Corpuscular HGB Conc 32.4 g/dl (32-36); Mean Corpuscular Hemoglobin 31.2 pg (26-34); Mean Corpuscular Volume 96.1 fl (80-100); Mean Platelet Volume 9.8 fl (7.4-10.4); Monocytes Absolute Auto 0.9 K/mm3 (0.1-0.6); Monocytes Percent Auto 6.7 % (2.6-8.5); Neutrophils Absolute Auto 11.1 K/mm3 (1.3-6.7); Neutrophils Percent Auto 80.7 % (45.5-73.1); Platelet Count Result 344 k/mm3 (150-375); Red Blood Count 4.14 M/mm3 (4.2-5.4); Red Cell Distribution Width 12.3 % (11.5-14.5); White Blood Count 13.7 K/mm3 (4.5-10.0)
[2022-11-17 05:41] LABS: Alanine Aminotransferase 39 U/L (6-35); Albumin Level 4.1 g/dL (3.5-5.1); Alkaline Phosphatase 104 U/L (38-126); Anion Gap 6 mmol/L (8-16); Aspartate Amino Transferase 32 U/L (14-36); Bilirubin,Total 0.6 mg/dL (0.2-1.3); Blood Urea Nitrogen 7 mg/dL (7-17); Calcium 8.6 mg/dL (8.4-10.2); Carbon Dioxide 25 mmol/L (22-30); Chloride 103 mmol/L (98-107); Estimated CRCL calculation 127 ml/min; Estimated Glomerular Filt Rate > 60; Glucose 130 mg/dL (65-110); Magnesium 1.8 mg/dL (1.6-2.3); Potassium 4.2 mmol/L (3.4-5.0); Sodium 134 mmol/L (137-145)
[2022-11-17] MEDS: metroNIDAZOLE 500 MG/ISO 100ML 500 MG/100 ML BAG 100 MG IVPB ×3 (06:14→22:42)
[2022-11-17] MEDS: IBUPROFEN 200 MG TABLET 600 MG PO ×3 (07:59→16:53)
[2022-11-17] MEDS: cefTRIAXone 2 GM in SODIUM CHLORIDE 0.9% IV 100 ML 200 ML IVPB (07:59)
[2022-11-17] MEDS: NICOTINE (*PBKC) 21 MG PATCH 1 PATCH TRANSDERM (08:00)
--- NOTE | 2022-11-17 09:00 | PM.IMPN ---
Progress Note: A&P Assessment and Plan (1) Facial cellulitis: Code(s): L03.211 - Cellulitis of face Status: Acute Assessment and Plan: CT of the face cellulitis without abscess with several cavities and sinus erosions Changed antibiotics to ceftriaxone, vanco, and flagyl Blood cultures NGTD Pain medications ordered, adjust as indicated to norco and oxycodone , add Dilaudid for break through pain WBC elevated at trending down currently 13.[address] face Culture of drainage in the mouth, while pushing on the cheek Trend labs and symptoms (2) Tobacco dependence: Code(s): F17.200 - Nicotine dependence, unspecified, uncomplicated Status: Acute Assessment and Plan: Nicotine patch as needed Cessation education provided (3) Hyponatremia: Code(s): E87.1 - Hypo-osmolality and hyponatremia Status: Acute Assessment and Plan: sodium was noted to be 130 upon admission, currently 134 continue to trend consider IV fluids if trending down stable at this time Seems resolved Subjective Date/time seen: 11/17/22 0900 Interval history: 11/17/22 09 Patient was sitting on the side the bed stating that she is having drainage into her mouth from her face. Was able to see that the drainage is coming from above her to. Was able to get a culture to hopefully narrow down the infection source. CT of the face re performed. She is still having some pain however she is denying any chest pain or shortness of breath, nausea, vomiting, diarrhea constipation. She also stated that she feels like the swelling is better and the redness and swelling around her eye is a lot better as well. 11/16/22 1200 patient stated that she does not feel like getting any better. Patient also stated that the pain is much worse and currently rates an 8/10. She denies any chest pain, shortness a breath, nausea, vomiting, diarrhea, constipation, weakness or fatigue. She did also state that it is very hard and that she is having hard time breathing out of her left nostril. Currently the redness seems to be stable will check with ID pharm about possibly change her antibiotics. 11/15/22 1230 patient seems to be a little has stressed out. She did state that she feels like her infection has went further and to her and upper face. She also stated that she cannot breathe out of the 1 nostril. She denies any chest pain, shortness a breath, nausea, vomiting, diarrhea, constipation, weakness fatigue. She is concerned that the redness is getting worse and that her face is really hard. However she also stated that she feels like the swelling in her eye has gone down a little bit as well. 11/14/22? 22:13 This is a 32-year-old female with past medical history significant for tobacco dependence, current everyday smoker, presents to the emergency room due to left-sided toothache was discharged home on a course of amoxicillin however this progressed to facial swelling of the left side in a matter of hours with pain and tenderness and redness patient denies any fevers, rigors or chills decided to come a 2nd time to the emergency room this time patient has been admitted. Review of Systems Review of Systems: All systems reviewed & are unremarkable except as noted in HPI and below Exam Narrative: General: well-nourished, well-appearing 32-year-old female, sitting up in bed, comfortable, NARD Neuro: awake, alert and oriented x4, speech clear, no focal neuro deficits noted HEENMT: normocephalic, atraumatic, EOMI, mild redness with swelling to the left face up around eye, with clear drainage from the EYE, several black and decayed teeth bilterally Respiratory: Clear to auscultation bilaterally without crackles, rhonchi or wheezes, nonlabored breathing Cardio: regular rate, regular rhythm with S1-S2 Abdomen: nondistended, normoactive bowel joleen
[2022-11-17 14:45] VITALS: BP 105/50; PULSE 80; RESP 16; TEMP 36.3; O2SAT 100
[2022-11-17 20:08] VITALS: BP 114/59; PULSE 72; RESP 20; TEMP 36.2; O2SAT 100
[2022-11-18 03:05] LABS: Vancomycin Trough 5.3 ug/mL (10.0-20.0)
[2022-11-18 04:24] VITALS: BP 115/63; PULSE 74; RESP 18; TEMP 36.6; O2SAT 98
--- NOTE | 2022-11-18 04:52 | PC.NURSE ---
Pt called c/o itching/burning/redness around and proximal to IV site. Pt states a similar reaction occurred with previous dose. Dr. Bruce notified and order to stop vanc and give 50mg PO benadryl received. reassess after treatment to determine if vanc may be restarted at a slower rate.
[2022-11-18] MEDS: diphenhydrAMINE HCl CAP 25 MG CAPSULE 50 MG PO (04:58)
[2022-11-18 06:05] LABS: Basophils Absolute Auto 0.1 K/mm3 (0.0-0.1); Basophils Percent Auto 1.1 % (0.2-1.2); Eosinophils Absolute Auto 0.6 K/mm3 (0-0.3); Eosinophils Percent Auto 8.5 % (0-4.4); Hematocrit 38.4 % (37.0-47.0); Hemoglobin 12.8 g/dL (12.0-15.0); Immature Granulocyte Absolute 0.02 K/mm3 (0.00-0.031); Immature Granulocyte Percent A 0.3 % (0-0.5); Lymphocytes Absolute Auto 0.99 K/mm3 (0.9-3.2); Mean Corpuscular HGB Conc 33.3 g/dl (32-36); Mean Corpuscular Hemoglobin 30.3 pg (26-34); Mean Platelet Volume 9.4 fl (7.4-10.4); Monocytes Absolute Auto 0.5 K/mm3 (0.1-0.6); Monocytes Percent Auto 7.3 % (2.6-8.5); Neutrophils Absolute Auto 4.5 K/mm3 (1.3-6.7); Neutrophils Percent Auto 67.8 % (45.5-73.1); Platelet Count Result 360 k/mm3 (150-375); Red Blood Count 4.22 M/mm3 (4.2-5.4); Red Cell Distribution Width 12.3 % (11.5-14.5); White Blood Count 6.6 K/mm3 (4.5-10.0)
[2022-11-18] MEDS: metroNIDAZOLE 500 MG/ISO 100ML 500 MG/100 ML BAG 100 MG IVPB ×3 (06:15→22:14)
[2022-11-18 06:17] LABS: Alanine Aminotransferase 42 U/L (6-35); Alkaline Phosphatase 100 U/L (38-126); Anion Gap 7 mmol/L (8-16); Aspartate Amino Transferase 27 U/L (14-36); Bilirubin,Total 0.3 mg/dL (0.2-1.3); Blood Urea Nitrogen 11 mg/dL (7-17); Calcium 8.7 mg/dL (8.4-10.2); Carbon Dioxide 26 mmol/L (22-30); Chloride 106 mmol/L (98-107); Estimated CRCL calculation 127 ml/min; Estimated Glomerular Filt Rate > 60; Glucose 135 mg/dL (65-110); Potassium 3.9 mmol/L (3.4-5.0); Sodium 139 mmol/L (137-145)
[2022-11-18] MEDS: IBUPROFEN 200 MG TABLET 600 MG PO ×3 (08:43→16:42)
[2022-11-18] MEDS: cefTRIAXone 2 GM in SODIUM CHLORIDE 0.9% IV 100 ML 200 ML IVPB (08:43)
[2022-11-18] MEDS: NICOTINE (*PBKC) 21 MG PATCH 1 PATCH TRANSDERM (08:44)
[2022-11-18] MEDS: ENOXAPARIN 40 MG/0.4 ML SYRINGE SUB-Q (08:44)
[2022-11-18] MEDS: diphenhydrAMINE HCl INJ 50 MG/ML VIAL IV PUSH (12:00)
[2022-11-18 14:57] VITALS: BP 99/61; PULSE 94; RESP 16; TEMP 36.1; O2SAT 99
[2022-11-18] MEDS: LORazepam (*CRX) 1 MG TABLET PO (15:25)
[2022-11-18] MEDS: diphenhydrAMINE HCl CAP 25 MG CAPSULE PO (15:25)
--- NOTE | 2022-11-18 16:32 | PM.IMPN ---
Progress Note: A&P Assessment and Plan (1) Facial cellulitis: Code(s): L03.211 - Cellulitis of face Status: Acute Assessment and Plan: CT of the face cellulitis without abscess with several cavities and sinus erosions Changed antibiotics to ceftriaxone, vanco, and flagyl Blood cultures NGTD Pain medications ordered, adjust as indicated to norco and oxycodone , add Dilaudid for break through pain WBC elevated at trending down currently 13.[address] face Culture of drainage in the mouth, while pushing on the cheek Trend labs and symptoms 11/18 improving, continue current antibiotics, follow-up wound culture, repeat CT shows developing abscess, however, patient having significant drainage and improvement of symptoms, will hold off on intervention (2) Tobacco dependence: Code(s): F17.200 - Nicotine dependence, unspecified, uncomplicated Status: Acute Assessment and Plan: Nicotine patch as needed Cessation education provided (3) Hyponatremia: Code(s): E87.1 - Hypo-osmolality and hyponatremia Status: Acute Assessment and Plan: Resolved Plan DVT prophylaxis with SCDs GI prophylaxis not indicated Code status full code Subjective Date/time seen: 11/18/22 16:32 Interval history: No overnight events noted. No chest pain or shortness of breath. No nausea, vomiting or diarrhea. No fevers or chills. Patient states she feels much better than yesterday. Still with some drainage. She is eager to go home. Review of Systems Review of Systems: 12 point review of systems was assessed and was negative except as noted in the HPI Exam Narrative: General: No acute distress, alert and oriented per baseline HEENT: Atraumatic, normocephalic, mucous membranes moist, erythema and swelling noted over the left maxillary to the sub orbital area, somewhat tender to palpation, no drainage noted CV: Regular rate and rhythm, S1, S2 Lungs: Clear to auscultation bilaterally, no rales or crackles noted, no wheezes, good air entry Abdomen: Soft, nontender, nondistended Extremities: Normal to inspection Skin: No rashes noted, no lesions or wounds seen Psych: Euthymic, normal affect Objective Data Vital Signs Vital Signs: Vital Signs - 24 hr 11/17/22 20:08 11/18/22 04:24 11/18/22 08:40 Temperature 97.1 F L 97.9 F Pulse Rate 72 74 Respiratory Rate 20 18 Blood Pressure 114/59 L 115/63 Pulse Oximetry 100 98 Oxygen Delivery Room Air 11/18/22 14:57 Temperature 97 F L Pulse Rate 94 Respiratory Rate 16 Blood Pressure 99/61 L Pulse Oximetry 99 Oxygen Delivery Intake/Output Intake/Output: Intake & Output 11/15/22 11/16/22 11/17/22 11/18/22 23:59 23:59 23:59 23:59 Intake Total 2370 1910 2520 1140 Output Total 1000 2100 Balance 1370 -190 2520 1140 Meds/Results Medications: Active Medications Generic Name Dose Route Start Last Admin Trade Name Freq PRN Reason Stop Dose Admin Hydrocodone Bitart/Acetaminophen 1 tab 11/15/22 12:38 11/17/22 08:00 Hydrocodone/Acetaminophen (*Crx) 5-325 Mg Tablet PO 1 tab Q4H PRN Administration Pain Rated 4-6 Albuterol 2 puff 11/15/22 02:05 Albuterol Sulfate (*Sp) Aerosol 1 Puff INHALATION Q6H PRN Shortness Of Breath Enoxaparin Sodium 40 mg 11/15/22 09:00 11/18/22 08:44 Enoxaparin 40 Mg/0.4 Ml Syringe SUB-Q 40 mg DAILY TERENCE Administration Hydromorphone HCl 0.5 mg 11/16/22 12:56 Hydromorphone Hcl Inj (*Crx) 1 Mg/Ml Syr IV PUSH Q4H PRN Breakthrough Pain Ceftriaxone Sodium 2 gm/ 100 mls @ 200 mls/hr 11/16/22 13:10 11/18/22 09:13 Sodium Chloride IVPB Infused QAM TERENCE Infusion Metronidazole 500 mg in 100 mls @ 100 mls/hr 11/16/22 14:00 11/18/22 14:30 Flagyl 500 Mg/Iso Soln 100 Ml IVPB 100 mls/hr Q8HR TERENCE Administration Vancomycin HCl 1,750 mg in 500 mls @ 250 mls/hr 11/18/22 04:00 11/18/22 04:52 Vancomycin 1,750 Mg/D5w 50
[2022-11-18 21:54] VITALS: BP 108/62; PULSE 98; RESP 18; TEMP 36.4; O2SAT 96
[2022-11-19 04:48] VITALS: BP 101/72; PULSE 77; RESP 18; TEMP 36.3; O2SAT 94
[2022-11-19 05:24] LABS: Basophils Absolute Auto 0.1 K/mm3 (0.0-0.1); Basophils Percent Auto 0.8 % (0.2-1.2); Eosinophils Absolute Auto 0.6 K/mm3 (0-0.3); Eosinophils Percent Auto 8.6 % (0-4.4); Hematocrit 38.5 % (37.0-47.0); Hemoglobin 12.5 g/dL (12.0-15.0); Immature Granulocyte Absolute 0.03 K/mm3 (0.00-0.031); Immature Granulocyte Percent A 0.5 % (0-0.5); Lymphocytes Absolute Auto 1.65 K/mm3 (0.9-3.2); Lymphocytes Percent Auto 25.7 % (18.3-44.2); Mean Corpuscular HGB Conc 32.5 g/dl (32-36); Mean Corpuscular Hemoglobin 30.3 pg (26-34); Mean Corpuscular Volume 93.2 fl (80-100); Mean Platelet Volume 9.2 fl (7.4-10.4); Monocytes Absolute Auto 0.8 K/mm3 (0.1-0.6); Monocytes Percent Auto 11.7 % (2.6-8.5); Neutrophils Absolute Auto 3.4 K/mm3 (1.3-6.7); Neutrophils Percent Auto 52.7 % (45.5-73.1); Platelet Count Result 385 k/mm3 (150-375); Red Blood Count 4.13 M/mm3 (4.2-5.4); Red Cell Distribution Width 12.2 % (11.5-14.5); White Blood Count 6.4 K/mm3 (4.5-10.0)
[2022-11-19 05:35] LABS: Alanine Aminotransferase 50 U/L (6-35); Albumin Level 3.7 g/dL (3.5-5.1); Alkaline Phosphatase 89 U/L (38-126); Anion Gap 5 mmol/L (8-16); Aspartate Amino Transferase 40 U/L (14-36); Bilirubin,Total < 0.1 mg/dL (0.2-1.3); Blood Urea Nitrogen 13 mg/dL (7-17); Calcium 8.4 mg/dL (8.4-10.2); Carbon Dioxide 25 mmol/L (22-30); Chloride 105 mmol/L (98-107); Estimated CRCL calculation 127 ml/min; Estimated Glomerular Filt Rate > 60; Glucose 108 mg/dL (65-110); Potassium 4.1 mmol/L (3.4-5.0); Sodium 135 mmol/L (137-145)
[2022-11-19] MEDS: metroNIDAZOLE 500 MG/ISO 100ML 500 MG/100 ML BAG 100 MG IVPB (06:22)
[2022-11-19] MEDS: IBUPROFEN 200 MG TABLET 600 MG PO ×2 (08:47→12:44)
[2022-11-19] MEDS: NICOTINE (*PBKC) 21 MG PATCH 1 PATCH TRANSDERM (08:47)
[2022-11-19] MEDS: cefTRIAXone 2 GM in SODIUM CHLORIDE 0.9% IV 100 ML 200 ML IVPB (08:50)
[2022-11-19] MEDS: LORazepam (*CRX) 0.5 MG TABLET PO (09:54)
--- NOTE | 2022-11-19 10:56 | PM.IMPN ---
Progress Note: A&P Assessment and Plan (1) Facial cellulitis: Code(s): L03.211 - Cellulitis of face Status: Acute Assessment and Plan: Initial CT of the face showed cellulitis without abscess with several cavities and sinus erosions Changed antibiotics to ceftriaxone, vanco, and flagyl Blood cultures NGTD Leukocytosis resolved repeat CT face showed formation of abscess, but it is draining Wound culture pending 11/18 improving, continue current antibiotics, follow-up wound culture, repeat CT shows developing abscess, however, patient having significant drainage and improvement of symptoms, will hold off on intervention 11/19 significant improvement, suspect abscess found is now draining, wound cx showing mixed martine for now, bld cx NGTD, will de-escalate abx to oral doxycycline 100 mg twice daily and anticipate d/c tomorrow on this regimen if continued improvement (2) Tobacco dependence: Code(s): F17.200 - Nicotine dependence, unspecified, uncomplicated Status: Acute Assessment and Plan: Nicotine patch as needed Cessation education provided (3) Hyponatremia: Code(s): E87.1 - Hypo-osmolality and hyponatremia Status: Acute Assessment and Plan: Resolved Plan DVT prophylaxis with SCDs GI prophylaxis not indicated Code status full code Subjective Date/time seen: 11/19/22 10:56 Interval history: No overnight events noted. No chest pain or shortness of breath. No nausea, vomiting or diarrhea. No fevers or chills. Patient states she feels much better than yesterday. Still with some drainage. She is eager to go home. Exam Narrative: General: No acute distress, alert and oriented per baseline HEENT: Atraumatic, normocephalic, mucous membranes moist, erythema and swelling noted over the left maxillary to the sub orbital area, somewhat tender to palpation, no drainage noted CV: Regular rate and rhythm, S1, S2 Lungs: Clear to auscultation bilaterally, no rales or crackles noted, no wheezes, good air entry Abdomen: Soft, nontender, nondistended Extremities: Normal to inspection Skin: No rashes noted, no lesions or wounds seen Psych: Euthymic, normal affect Objective Data Vital Signs Vital Signs: Vital Signs - 24 hr 11/18/22 14:57 11/18/22 21:54 11/18/22 20:00 Temperature 97 F L 97.5 F L Pulse Rate 94 98 Respiratory Rate 16 18 Blood Pressure 99/61 L 108/62 Pulse Oximetry 99 96 Oxygen Delivery Room Air 11/19/22 04:48 Temperature 97.4 F L Pulse Rate 77 Respiratory Rate 18 Blood Pressure 101/72 Pulse Oximetry 94 Oxygen Delivery Intake/Output Intake/Output: Intake & Output 11/16/22 11/17/22 11/18/22 11/19/22 23:59 23:59 23:59 23:59 Intake Total 1909 2519 2009 410 Output Total 2099 Balance -190 2519 2009 410 Meds/Results Medications: Active Medications Generic Name Dose Route Start Last Admin Trade Name Freq PRN Reason Stop Dose Admin Hydrocodone Bitart/Acetaminophen 1 tab 11/15/22 12:38 11/17/22 08:00 Hydrocodone/Acetaminophen (*Crx) 5-325 Mg Tablet PO 1 tab Q4H PRN Administration Pain Rated 4-6 Albuterol 2 puff 11/15/22 02:05 Albuterol Sulfate (*Sp) Aerosol 1 Puff INHALATION Q6H PRN Shortness Of Breath Enoxaparin Sodium 40 mg 11/15/22 09:00 11/19/22 08:47 Enoxaparin 40 Mg/0.4 Ml Syringe SUB-Q Not Given DAILY TERENCE Hydromorphone HCl 0.5 mg 11/16/22 12:56 Hydromorphone Hcl Inj (*Crx) 1 Mg/Ml Syr IV PUSH Q4H PRN Breakthrough Pain Ceftriaxone Sodium 2 gm/ 100 mls @ 200 mls/hr 11/16/22 13:10 11/19/22 08:50 Sodium Chloride IVPB 200 mls/hr QAM TERENCE Administration Metronidazole 500 mg in 100 mls @ 100 mls/hr 11/16/22 14:00 11/19/22 07:19 Flagyl 500 Mg/Iso Soln 100 Ml IVPB Infused Q8HR TERENCE Infusion Vancomycin HCl 1,750 mg in 500 mls @ 250 mls/hr 11/18/22 04:00 11/19/22 08:46 Vancomycin 1,750 Mg/D5w 500 Ml IVPB 250 mls/hr
[2022-11-19] MEDS: DOXYCYCLINE HYCLATE 100 MG TABLET PO (12:44)
--- NOTE | 2022-11-19 13:13 | PM.DS ---
DS: Admitting Diagnosis Discharge Date 11/19/2022 Admitting Diagnosis Toothache with facial swelling DS: Discharge Diagnosis Discharge Diagnosis (1) Facial cellulitis: Code(s): L03.211 - Cellulitis of face Status: Acute Assessment and Plan: Initial CT of the face showed cellulitis without abscess with several cavities and sinus erosions Changed antibiotics to ceftriaxone, vanco, and flagyl Blood cultures NGTD Leukocytosis resolved repeat CT face showed formation of abscess, but it is draining Wound culture pending 11/18 improving, continue current antibiotics, follow-up wound culture, repeat CT shows developing abscess, however, patient having significant drainage and improvement of symptoms, will hold off on intervention 11/19 significant improvement, suspect abscess found is now draining, wound cx showing mixed martine for now, bld cx NGTD, will de-escalate abx to oral doxycycline 100 mg twice daily and anticipate d/c tomorrow on this regimen if continued improvement (2) Tobacco dependence: Code(s): F17.200 - Nicotine dependence, unspecified, uncomplicated Status: Acute Assessment and Plan: Nicotine patch as needed Cessation education provided (3) Hyponatremia: Code(s): E87.1 - Hypo-osmolality and hyponatremia Status: Acute Assessment and Plan: Resolved Plan DVT prophylaxis with SCDs GI prophylaxis not indicated Code status full code DS: Summary Hospital Course Hospital Course: 32-year-old female with past medical history significant for tobacco dependence, current everyday smoker, presents to the emergency room due to left-sided toothache was discharged home on a course of amoxicillin however this progressed to facial swelling of the left side in a matter of hours with pain and tenderness and redness patient denies any fevers, rigors or chills decided to come a 2nd time to the emergency room this time patient has been admitted. Patient was started on vancomycin, Rocephin and Flagyl. Symptoms improved. Few days in, symptoms started to worsen and wound culture was taken and repeat CT scan was ordered. This showed a collection of purulence material to be an abscess developing. Shortly after, with massage of the area, the abscess started to drain spontaneously. Patient's symptoms resolved significantly. Wound and blood cultures are pending but are negative growth to date. Patient's antibiotics were deescalated to doxycycline 100 mg twice daily orally. Symptoms continue to improve and she was discharged in good condition with close outpatient follow-up of the cultures. Time Spent with Patient Time attestation: Total time spent providing and/or coordinating discharge services: Exam Narrative: General: No acute distress, alert and oriented per baseline HEENT: Atraumatic, normocephalic, mucous membranes moist, erythema and swelling noted over the left maxillary to the sub orbital area, somewhat tender to palpation, no drainage noted CV: Regular rate and rhythm, S1, S2 Lungs: Clear to auscultation bilaterally, no rales or crackles noted, no wheezes, good air entry Abdomen: Soft, nontender, nondistended Extremities: Normal to inspection Skin: No rashes noted, no lesions or wounds seen Psych: Euthymic, normal affect DS: Data Data Completed and Pending Labs on day of discharge: Labs from last 24 hours 11/19/22 11/19/22 05:15 05:15 WBC 6.4 RBC 4.13 L Hgb 12.5 Hct 38.5 MCV 93.2 MCH 30.3 MCHC 32.5 RDW 12.2 Plt Count 385 H MPV 9.2 Immature Gran % (Auto) 0.5 Neut % (Auto) 52.7 Lymph % (Auto) 25.7 Hooker % (Auto) 11.7 H Eos % (Auto) 8.6 H Baso % (Auto) 0.8 Lymph # (Auto) 1.65 Hooker # (Auto) 0.8 H Eos # (Auto) 0.6 H Baso # (Auto) 0.1 Abs Immat Gran (auto) 0.03 Absolute Neuts (auto) 3.4 Absolute Nucleated RBC 0.0 Nucleated RBC % 0.0 Sodium 135 L Potassium 4.1 Chloride 105 Carbon Dioxide
== END 2022-11-19 14:30 | disposition home or self-care (01) | DRG 383 ==
LOC: ANHED 21:36 → ANH2MED 21:39
PROVIDERS: Nurse Practitioner; Physician Assistant; Admitting Provider Internal Medicine; Emergency Provider Emergency Medicine; Visit Provider Student in an Organized Health Care Education/Training Program
DX: L03.211 Cellulitis of face (principal); E87.1 Hypo-osmolality and hyponatremia; L02.01 Cutaneous abscess of face; Z20.822 Contact with and (suspected) exposure to COVID-19; K02.9 Dental caries, unspecified; F17.210 Nicotine dependence, cigarettes, uncomplicated
CPT/HCPCS: 36415; 70487; 70491; 80053; 80202; 83735; 85025; 85055; 87040; 87070; 87075; 87077; 87205; 87636; 96365; 96372; 99285; A9270; J0131; J0696; J1170; J1200; J1650; J1885; J3370; Q9967